=== PATIENT | male | born 1940 | race Caucasian/White ===

== ENCOUNTER 2017-06-15 23:31 | Emergency (ER) | payer BC, MEDICARE ==
[~2017-06-15] VITALS: Ht 172.7 cm; Wt 80.0 kg
[~2017-06-15 23:31] MED LIST: ALBU6.7H INH; FOSI10TA4 PO; LIPI10TA PO; TERA2CAP3; ZITH250T PO; m
[2017-06-15 23:32] VITALS: BP 212/100; PULSE 87; RESP 16; TEMP 98.1; O2SAT 95
[2017-06-15] MEDS ORDERED: FOSI10TA PO (23:39)
[2017-06-16] MEDS ORDERED: MECLIZINE HCL 25 MG TAB PO ONE (00:45)
--- NOTE | 2017-06-16 00:56 | RADRPT ---
EXAM DATE/TIME: 06/16/2017 00:47 [facility] COMPARISON: CHEST SINGLE AP, April 28, 2014, 20:59. INDICATIONS : Short of breath. MEDICAL HISTORY : Bronchitis. SURGICAL HISTORY : None. ENCOUNTER: Initial ACUITY: 1 day PAIN SCORE: 0/10 LOCATION: Bilateral chest FINDINGS: A single view of the chest demonstrates the lungs to be symmetrically aerated without evidence of mas s, infiltrate or effusion. The cardiomediastinal contours are unremarkable. Osseous structures are intact. CONCLUSION: No acute disease. Anderson Kruse Jr., MD on June 16, 2017 at 0:55 Board Certified Radiologist. This report was verified electronically.
[2017-06-16 01:13] LABS: BASOPHIL % 0.8 % (0.0-2.0); EOSINOPHIL # 0.3 TH/MM3 (0-0.4); EOSINOPHIL % 4.3 % (0.0-4.0); HEMATOCRIT 41.4 % (39.0-51.0); HEMOGLOBIN 14.4 GM/DL (13.0-17.0); LYMPH % 35.8 % (9.0-44.0); LYMPHOCYTE # 2.2 TH/MM3 (1.0-4.8); MEAN CELL VOLUME 89.2 FL (80.0-100.0); MEAN CORPUSCULAR HEMOGLOBIN 31.1 PG (27.0-34.0); MEAN CORPUSCULAR HGB CONC 34.9 % (32.0-36.0); MEAN PLATELET VOLUME 7.3 FL (7.0-11.0); MONO % 11.1 % (0.0-8.0); MONOCYTE # 0.7 TH/MM3 (0-0.9); PLATELET COUNT 164 TH/MM3 (150-450); RED BLOOD COUNT 4.64 MIL/MM3 (4.50-5.90); RED CELL DISTRIBUTION WIDTH 12.6 % (11.6-17.2); WHITE BLOOD COUNT 6.2 TH/MM3 (4.0-11.0)
[2017-06-16 01:14] LABS: BILIRUBIN, URINE NEG (NEG); BLOOD, URINE NEG (NEG); GLUCOSE,URINE NEG (NEG); KETONE, URINE NEG (NEG); MUCUS URINE FEW /lpf (OCC); NITRITE,URINE NEG (NEG); URINE COLOR LIGHT-YELLOW (YELLW/STRAW); URINE LEUKOCYTE ESTERASE NEG (NEG)
--- NOTE | 2017-06-16 01:22 | RADRPT ---
EXAM DATE/TIME: 06/16/2017 01:10 [facility] COMPARISON: No previous studies available for comparison. INDICATIONS : Dizziness. RADIATION DOSE: 37.53 CTDIvol (mGy) MEDICAL HISTORY : Hypertension. SURGICAL HISTORY : None. ENCOUNTER: Initial ACUITY: 3 days PAIN SCALE: 0/10 LOCATION: cranial TECHNIQUE: Multiple contiguous axial images were obtained of the head. Using automated exposure control and adj ustment of the mA and/or kV according to patient size, radiation dose was kept as low as reasonably a chievable to obtain optimal diagnostic quality images. DICOM format image data is available electro nically for review and comparison. FINDINGS: CEREBRUM: The ventricles are normal for age. No evidence of midline shift, mass lesion, hemorrhage or acute in farction. No extra-axial fluid collections are seen. POSTERIOR FOSSA: The cerebellum and brainstem are intact. The 4th ventricle is midline. The cerebellopontine angle i s unremarkable. EXTRACRANIAL: The visualized portion of the orbits is intact. SKULL: The calvaria is intact. No evidence of skull fracture. CONCLUSION: Normal examination. Anderson Kruse Jr., MD on June 16, 2017 at 1:20 Board Certified Radiologist. This report was verified electronically.
[2017-06-16 01:23] LABS: INTERNATIONAL NORMALIZED RATIO 1.1 RATIO; PROTHROMBIN TIME - PATIENT 10.7 SEC (9.8-11.6)
--- NOTE | 2017-06-16 01:28 | PD ---
HPI Chief Complaint: Dizziness Time Seen by Provider: 00:04 Travel History International Travel<30 days: No Contact w/Intl Traveler<30days: No Traveled to known affect area: No History of Present Illness HPI 77 years old male complains of dizziness. Patient states that the symptoms started yesterday. Patient states the dizziness is with standing up walking and body movement. Patient denies any dizziness address. Patient denies any headache. Patient denies any visual change. Patient denies any neck pain. Patient denies any chest pain or shortness of breath. Patient denies abdominal pain. Patient denies any focal weakness or numbness of extremity. Patient states that the dizziness so severe that affected his gait. Patient states that he has unsteady gait with the dizziness. Patient denies any nausea vomiting with the dizziness. Patient denies any hearing loss or ringing in the ears. PFSH Past Medical History Heart Rhythm Problems: No Cardiac Catheterization: No Cardiovascular Problems: Yes (HTN) High Cholesterol: Yes Congestive Heart Failure: No Diabetes: No Diminished Hearing: No Heparin Induced Thrombocytopen: No Hypertension: Yes Past Surgical History Coronary Artery Bypass Graft: No Tonsillectomy: Yes Family History Family Myocardial Infarction: Yes (father and sister) Social History Alcohol Use: Yes (OCCASIONALLY) Tobacco Use: No (QUIT 20 YEARS AGO) Substance Use: Yes (MARIJUANA OCC., "ABOUT TWICE A MONTH") Allergies-Medications (Allergen,Severity, Reaction): Coded Allergies: ciprofloxacin (Unverified Allergy, Mild, "UPSET STOMACH", 06/15/17) sulfamethoxazole (Unverified Allergy, Mild, Nausea/Vomiting, 06/15/17) trimethoprim (Unverified Allergy, Mild, Nausea/Vomiting, 06/15/17) Reported Meds & Prescriptions Reported Meds & Active Scripts Active Proventil Hfa 6.7 GM Inh (Albuterol Sulfate) 90 Mcg/Act Aer 2 Puff INH Q4-6H PRN Reported Fosinopril (Fosinopril Sodium) 10 Mg Tab 10 Mg PO DAILY Lipitor (Atorvastatin Calcium) 10 Mg Tab 10 Mg PO DAILY Terazosin (Terazosin HCl) 2 Mg Cap 2 Mg .ROUTE DAILY Review of Systems General / Constitutional: No: Fever Eyes: No: Visual changes HENT: Positive: Lightheadedness, No: Headaches Cardiovascular: No: Chest Pain or Discomfort Respiratory: No: Shortness of Breath Gastrointestinal: No: Abdominal Pain Genitourinary: No: Dysuria Musculoskeletal: No: Pain Skin: No Rash Neurologic: No: Weakness Psychiatric: No: Depression Endocrine: No: Polydipsia Hematologic/Lymphatic: No: Easy Bruising Physical Exam Narrative GENERAL: Well-nourished, well-developed patient. SKIN: Focused skin assessment warm/dry. HEAD: Normocephalic. EYES: No scleral icterus. No injection or drainage. Pupils 2 mm equal reactive. NECK: Supple, trachea midline. No JVD or lymphadenopathy. No meningismus. CARDIOVASCULAR: Regular rate and rhythm without murmurs, gallops, or rubs. RESPIRATORY: Breath sounds equal bilaterally. No accessory muscle use. GASTROINTESTINAL: Abdomen soft, non-tender, nondistended. MUSCULOSKELETAL: No cyanosis, or edema. BACK: Nontender without obvious deformity. No CVA tenderness. Neurologic exam: Patient's awake and alert oriented 3. No obvious focal neurological deficit. Data Data Last Documented VS Vital Signs Date Time Temp Pulse Resp B/P (MAP) Pulse Ox O2 Delivery O2 Flow Rate FiO2 06/15/17 23:32 98.1 87 16 212/100 (137) 95 Room Air Orders Orders Electrocardiogram (06/16/17 00:37) Complete Blood Count With Diff (06/16/17 00:37) Comprehensive Metabolic Panel (06/16/17 00:37) Prothrombin Time / Inr (Pt) (06/16/17 00:37) Act Partial Throm Time (Ptt) (06/16/17 00:37) Urinalysis - C+S If Indicated (06/16/17 00:37) Thyroid Stimulating Hormone (06/16/17 00:37) Chest, Single Ap (06/16/17 00:37) Ct Brain W/O Iv Contrast(Rout) (06/16/17 00:37) Iv Access Insert/Monitor (06/16/17 00:37) Ecg Monitoring (06/16/17 00:37) Oximetry (06/16/17 00:37) Meclizine (Antivert) (06/16/17 00:45) Labs Laboratory Tests Test 06/16/17 00:40 06/16/17 01:00 Urine Color LIGHT-YELLOW Urine Turbidity CLEAR Urine pH 7.0 Urine Specific [place] 1.010 Urine Protein NEG mg/dL Urine Glucose (UA) NEG mg/dL Urine Ketones NEG mg/dL Urine Occult Blood NEG Urine Nitrite NEG Urine Bilirubin NEG Urine Urobilinogen LESS THAN 2.0 MG/DL Urine Leukocyte Esterase NEG Urine WBC LESS THAN 1 /hpf Urine Mucus FEW /lpf Microscopic Urinalysis Comment CULT NOT INDICATED White Blood Count 6.2 TH/MM3 Red Blood Count 4.64 MIL/MM3 Hemoglobin 14.4 GM/DL Hematocrit 41.4 % Mean Corpuscular Volume 89.2 FL Mean Corpuscular Hemoglobin 31.1 PG Mean Corpuscular Hemoglobin Concent 34.9 % Red Cell Distribution Width 12.6 % Platelet Count 164 TH/MM3 Mean Platelet Volume 7.3 FL Neutrophils (%) (Auto) 48.0 % Lymphocytes (%) (Auto) 35.8 % Monocytes (%) (Auto) 11.1 % Eosinophils (%) (Auto) 4.3 % Basophils (%) (Auto) 0.8 % Neutrophils # (Auto) 3.0 TH/MM3 Lymphocytes # (Auto) 2.2 TH/MM3 Monocytes # (Auto) 0.7 TH/MM3 Eosinophils # (Auto) 0.3 TH/MM3 Basophils # (Auto) 0.0 TH/MM3 CBC Comment DIFF FINAL Differential Comment Prothrombin Time 10.7 SEC Prothromb Time International Ratio 1.1 RATIO Activated Partial Thromboplast Time 26.0 SEC Blood Urea Nitrogen 15 MG/DL Creatinine 1.38 MG/DL Random Glucose 100 MG/DL Total Protein 6.9 GM/DL Albumin 3.7 GM/DL Calcium Level 8.1 MG/DL Alkaline Phosphatase 90 U/L Aspartate Amino Transf (AST/SGOT) 20 U/L Alanine Aminotransferase (ALT/SGPT) 24 U/L Total Bilirubin 0.5 MG/DL Sodium Level 144 MEQ/L Potassium Level 4.3 MEQ/L Chloride Level 111 MEQ/L Carbon Dioxide Level 28.2 MEQ/L Anion Gap 5 MEQ/L Estimat Glomerular Filtration Rate 50 ML/MIN Thyroid Stimulating Hormone 3rd Gen 3.250 uIU/ML MDM Medical Decision Making Medical Screen Exam Complete: Yes Emergency Medical Condition: Yes Interpretation(s) Last Impressions Chest X-Ray 06/16/17 0037 Signed Impressions: Service Date/Time: Friday, June 16, 2017 00:47 - CONCLUSION: No acute disease. Anderson Kruse Jr., MD CT scan of brain negative acute pathology. CBC within normal limit. UA is negative. 1:41 AM. CMP within normal limit. Creatinine 1.38. Differential Diagnosis Differential diagnosis including benign vertigo, labyrinthitis, TIA, CVA, electrolyte imbalance, dehydration. Narrative Course 77 years old male with dizziness. Meclizine 25 mg by mouth given. Diagnosis Primary Impression: Vertigo Patient Instructions: General Instructions Additional Instructions: Meclizine as needed for dizziness. Follow-up with personal physician. Return if worse. Med/Other Pt SpecificInfo: Prescription(s) given Scripts Meclizine (Meclizine) 25 Mg Tab 25 MG PO TID Y for VERTIGO, #30 TAB 0 Refills Prov: Jose Marina MD 06/16/17 Disposition: 01 DISCHARGE HOME Condition: Stable Jose Marina MD Jun 16, 2017 01:28
[2017-06-16 01:39] LABS: ALKALINE PHOSPHATASE 90 U/L (45-117); TOTAL BILIRUBIN ADULT 0.5 MG/DL (0.2-1.0); TOTAL PROTEIN 6.9 GM/DL (6.4-8.2)
[2017-06-16 01:40] LABS: ALBUMIN 3.7 GM/DL (3.4-5.0); ALT (GPT) 24 U/L (12-78); AST (GOT) 20 U/L (15-37); BICARBONATE 28.2 MEQ/L (21.0-32.0); BLOOD UREA NITROGEN 15 MG/DL (7-18); CALCIUM 8.1 MG/DL (8.5-10.1); CHLORIDE 111 MEQ/L (98-107); CREATININE 1.38 MG/DL (0.60-1.30); GLOMERULAR FILTRATION RATE 50 ML/MIN (>89); GLUCOSE,RANDOM 100 MG/DL (74-106); SODIUM (NA) 144 MEQ/L (136-145)
[2017-06-16] MEDS ORDERED: MECL-62 PO (01:46)
--- NOTE | 2017-06-16 17:36 | EKG ---
Date Performed: 06/16/2017 Time Performed: 00:05:46 PTAGE: 77 years EKG: Sinus rhythm INDETERMINATE AXIS INTRAVENTRICULAR CONDUCTION DELAY ABNORMAL ECG PREVIOUS TRACING : 04/29/2014 02.39 Compared to prior tracing no significant change DOCTOR: Lili Zaldivar Interpretating Date/Time 06/16/2017 17:35:01
[2017-06-24] MEDS ORDERED: LINA145C PO (10:46)
== END 2017-06-16 02:18 | disposition home or self-care (01) ==
LOC: NEPC 23:31
DX: R42 Dizziness and giddiness (principal); R26.9 Unspecified abnormalities of gait and mobility; R94.31 Abnormal electrocardiogram [ECG] [EKG]; I10 Essential (primary) hypertension; E78.00 Pure hypercholesterolemia, unspecified; Z79.899 Other long term (current) drug therapy; Z88.2 Allergy status to sulfonamides; Z88.1 Allergy status to other antibiotic agents; Z88.8 Allergy status to other drugs, medicaments and biological substances
CPT/HCPCS: 70450; 71045; 80053; 81001; 84443; 85025; 85610; 85730; 93005; 99285